=== PATIENT | female | born 1945 | race Caucasian/White ===

== ENCOUNTER → 2016-11-08 | Outpatient (CLI) | payer OTHER ==
--- NOTE | 2016-11-08 09:12 | DIAGNOSTIC IMAGING REPORT ---
RIGHT KNEE 4 OR MORE CLINICAL HISTORY: Right knee pain. COMPARISON: None FINDINGS: Alignment of the right knee is anatomic. There is a transverse lucency within the tibial tubercle. This could reflect an incomplete fracture. There is no knee joint effusion. Joint spaces are preserved. IMPRESSION: 1. Transverse lucency of the tibial tubercle. This may reflect an age indeterminate incomplete fracture. 2. No joint effusion. Electronically signed by: Gm Manning M.D. 11/08/2016 9:09 AM Dictated Date/Time: 11/08/2016 9:06 AM
== END | disposition home or self-care (01) ==
LOC: C.RDSM 12:35
PROVIDERS: ATTEND Physician Assistant
DX: M25.561 Pain in right knee (principal); R93.7 Abnormal findings on diagnostic imaging of other parts of musculoskeletal system

== ENCOUNTER → 2016-12-06 | Outpatient (CLI) | payer OTHER ==
--- NOTE | 2016-12-06 09:29 | DIAGNOSTIC IMAGING REPORT ---
RIGHT TIBIA/FIBULA 2 VIEWS CLINICAL HISTORY: Follow-up tibial tuberosity fracture. COMPARISON: Right knee radiograph November 08, 2016. FINDINGS: Note is made of a distal right fibular internal fixation with plate and screws. Ankle mortise appears intact. There is no acute fracture of the right fibula. A transverse lucency within the tibial tubercle is again noted although slightly less conspicuous than on exam of November 08, 2016. There may be minimal associated sclerosis. IMPRESSION: Findings suggestive of a healing nondisplaced transverse fracture of the tibial tubercle. Electronically signed by: Gm Manning M.D. 12/06/2016 9:28 AM Dictated Date/Time: 12/06/2016 9:26 AM
== END | disposition home or self-care (01) ==
LOC: C.RDSM 09:08
PROVIDERS: ATTEND Physician Assistant
DX: S82.154D Nondisplaced fracture of right tibial tuberosity, subsequent encounter for closed fracture with routine healing (principal); X58.XXXD Exposure to other specified factors, subsequent encounter

== ENCOUNTER → 2017-02-08 | Outpatient (CLI) | payer OTHER ==
--- NOTE | 2017-02-08 09:16 | DIAGNOSTIC IMAGING REPORT ---
RIGHT TIBIA/FIBULA 2 VIEWS CLINICAL HISTORY: RIGHT TIBIAL TUBEROSITY FX Right fracture COMPARISON: 12/06/2016 DISCUSSION: Operative changes consistent with a distal fibular plate is unchanged. Interval complete healing of the fracture of the tibial tubercle. No acute bony abnormality appreciated on the current study. IMPRESSION: Complete healing of the tibial tubercle fracture. No acute process the current time. Electronically signed by: Denis Bowser M.D. 02/08/2017 9:15 AM Dictated Date/Time: 02/08/2017 9:13 AM
== END | disposition home or self-care (01) ==
LOC: C.RDSM 12:22
PROVIDERS: ATTEND Physician Assistant
DX: S82.154D Nondisplaced fracture of right tibial tuberosity, subsequent encounter for closed fracture with routine healing (principal); X58.XXXD Exposure to other specified factors, subsequent encounter

== ENCOUNTER → 2017-03-15 | Outpatient (CLI) | payer OTHER ==
[2017-03-15 15:12] LABS: CHOLESTEROL 157 mg/dl (0-200); CHOLESTEROL/HDL RATIO 2.5; HDL CHOLESTEROL 62 mg/dl; TRIGLYCERIDES 169 mg/dl (0-150); VERY LOW DENSITY LIPOPROT CALC 34 mg/dl
[2017-03-16 07:01] LABS: ESTIMATED AVERAGE GLUCOSE 192 mg/dl; HA1C FLAG Normal (Normal)
== END | disposition home or self-care (01) ==
LOC: C.LAB1850 14:01
PROVIDERS: ATTEND Nurse Practitioner Adult Health
DX: E78.5 Hyperlipidemia, unspecified (principal); E10.9 Type 1 diabetes mellitus without complications; I10 Essential (primary) hypertension; E55.9 Vitamin D deficiency, unspecified